=== PATIENT | male | born 1990 | race African-American/Black ===

== ENCOUNTER 2017-03-31 19:02 | Inpatient (IN) | payer OTHER ==
[~2017-03-31] VITALS: Ht 177.8 cm; Wt 89.5 kg
[2017-03-31 20:32] LABS: MEAN CORPUSCULAR HEMOGLOBIN 29.5 pg (27.0-33.0); MEAN CORPUSCULAR HGB CONC 33.2 g/dl (32.0-36.5); MEAN CORPUSCULAR VOLUME 88.9 fl (80.0-96.0); RED CELL DISTRIBUTION WIDTH 12.9 % (11.5-14.5); WHITE BLOOD COUNT 7.2 K/mm3 (4.0-10.0)
[2017-03-31 20:42] LABS: METHADONE URINE NEGATIVE (NEGATIVE)
[2017-03-31 20:53] LABS: ALBUMIN 3.8 GM/DL (3.2-5.2); ALBUMIN/GLOBULIN RATIO 1.12 (1.00-1.93); ALKALINE PHOSPHATASE 72 U/L (45-117); ALT/SGPT 36 U/L (12-78); ANION GAP 8 MEQ/L (8-16); AST/SGOT 17 U/L (15-37); BILIRUBIN,DIRECT < 0.1 MG/DL (0.0-0.2); BILIRUBIN,TOTAL 0.2 MG/DL (0.2-1.0); BLOOD UREA NITROGEN 9 MG/DL (7-18); CALCIUM LEVEL 8.9 MG/DL (8.5-10.1); CARBON DIOXIDE LEVEL 27 MEQ/L (21-32); CHLORIDE LEVEL 106 MEQ/L (98-107); CREATININE FOR GFR 0.93 MG/DL (0.70-1.30); GLOMERULAR FILTRATION RATE > 60.0 (>60); GLUCOSE, FASTING 92 MG/DL (70-105); POTASSIUM SERUM 3.7 MEQ/L (3.5-5.1); SODIUM LEVEL 141 MEQ/L (136-145); TOTAL PROTEIN 7.2 GM/DL (6.4-8.2)
[2017-03-31] MEDS ORDERED: ACETAMINOPHEN TAB 650MG DOSE (2X325MG) PO PRN (21:30)
[2017-03-31] MEDS ORDERED: MOM 30ML SUSPENSION UDC PO PRN (21:30)
[2017-03-31] MEDS ORDERED: MAALOX 30 ML SUSP *UDC PO PRN (21:30)
[2017-03-31 22:46] VITALS: BP 139/85
[2017-04-01] MEDS: traZODone 50 MG TAB PO PRN ×2 (00:29→22:48)
[2017-04-01 06:34] VITALS: BP 114/70
[2017-04-01] MEDS: NICOTINE 14 MG/24 HR TRANSDERMAL TD SCH (09:00)
--- NOTE | 2017-04-01 10:09 | ECGEPIP ---
Stationary ECG Study [facility] - ED Test Date: 2017-03-31 Pat Name: JERRELL CAMACHO Department: Room: [place] [address] Gender: M General Maintenance Mechanic: andre : 1990 Requested By: CONOR LICONA Order Number: [id number] Reading MD: Sultana Oviedo Measurements Intervals [place] Rate: 76 P: 44 CT: 151 QRS: 64 QRSD: 104 T: -26 QT: 348 QTc: 393 Interpretive Statements SINUS RHYTHM ST ELEVATION CONSISTENT WITH INJURY, PERICARDITIS, OR EARLY REPOLARIZATION, CLINICAL CORRELATION NONSPECIFIC ST & T-WAVE ABNORMALITY NO PRIOR FOR COMPARISON Electronically Signed On 04-01-2017 10:09:01 EDT by Sultana Oviedo
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
[2017-04-01 18:00] VITALS: BP 150/82
--- NOTE | 2017-04-01 18:58 | ECGEPIP ---
Stationary ECG Study [facility] Test Date: 2017-04-01 Pat Name: JERRELL CAMACHO Department: Room: [place] [address] Gender: M Drywall Contractor: GABBI : 1990 Requested By: AMEYA OLIVIA Order Number: [id number] Reading MD: Tyler Graham Measurements Intervals [place] Rate: 75 P: 46 WI: 160 QRS: 70 QRSD: 96 T: -26 QT: 341 QTc: 382 Interpretive Statements SINUS RHYTHM ST ELEVATION CONSISTENT WITH INJURY, PERICARDITIS, OR EARLY REPOLARIZATION ST DEVIATION AND MODERATE T-WAVE ABNORMALITY, CONSIDER ISCHEMIA LAST TRACING ON 03/31/2017 AT 20:47:45, NO SIGNIFICANT CHANGES Electronically Signed On 04-01-2017 18:58:51 EDT by Tyler Graham
--- NOTE | 2017-04-01 19:36 | IPNPDOC ---
[facility] Progress Note Progress Note Patient was referred to Attending and resident team because of the abnormal EKG that was suggestive of possible cardiac injury. The EKG interpretation done by the ER suggested this, however, it didn't appear to addressed specifically in the ER. The patient was not c/o chest pain or other symptoms. A repeat EKG showed no changes or progression. The EKG interpretation by Dr. Graham (cardio) was concerned with ischemia and other injurious processes to the heart. Cardiac Marker panel was ordered Q8H hours to rule out any cardiac injury. His first round of enzymes were normal. Item Value Date Time Total Creatine Kinase 229 U/L 04/01/17 1728 Creatine Kinase MB 1.0 NG/ML 04/01/17 1728 Creatine Kinase MB Relative Index 0.43 04/01/17 1728 Troponin I < 0.02 NG/ML 04/01/17 1728 Will continue with two other rounds to complete r/o of any ischemic processes. If they remain normal, then we will refer to the patient to his PCP for outpatient work up. If they become abnormal then medicine will be consulted. His QtC appears to have normalized to 370, which suggests that the use of prozac or other SSRIs would not be contraindicated based on this concern. Vital Signs Vital Signs Date Time Temp Pulse Resp B/P (MAP) Pulse Ox O2 Delivery O2 Flow Rate FiO2 04/01/17 06:34 99.5 81 16 114/70 (85) 03/31/17 22:34 99 Room Air Laboratory Data 24H Labs Laboratory Tests 2 03/31/17 20:10: Anion Gap 8, Glomerular Filtration Rate > 60.0, Calcium Level 8.9, Aspartate Amino Transf (AST/SGOT) 17, Alanine Aminotransferase (ALT/SGPT) 36, Alkaline Phosphatase 72, Total Bilirubin 0.2, Direct Bilirubin < 0.1, Total Creatine Kinase 297, Total Protein 7.2, Albumin 3.8, Albumin/Globulin Ratio 1.12, Thyroid Stimulating Hormone (TSH) 0.705, Salicylates Level < 1.7L, Urine Amphetamines Screen NEGATIVE, Urine Benzodiazepines Screen NEGATIVE, Urine Opiates Screen NEGATIVE, Urine Methadone Screen NEGATIVE, Acetaminophen Level < 2.0L, Urine Barbiturates Screen NEGATIVE, Urine Phencyclidine Screen NEGATIVE, Urine Cocaine Metabolite Screen NEGATIVE, Urine Cannabinoids Screen NEGATIVE, Ethyl Alcohol Level 0.024H 04/01/17 17:28: Total Creatine Kinase 229, Creatine Kinase MB 1.0, Creatine Kinase MB Relative Index 0.43, Troponin I < 0.02 CBC/BMP Laboratory Tests 03/31/17 20:10 Red Blood Count 5.03, Mean Corpuscular Volume 88.9, Mean Corpuscular Hemoglobin 29.5, Mean Corpuscular Hemoglobin Concent 33.2, Red Cell Distribution Width 12.9 Current Medications Current Medications Acetaminophen (Tylenol Tab) 650 mg Q6HP PRN PO HEADACHE or DISCOMFORT; Start at 21:30; Stop 04/30/17 at 21:29 Al Hydrox/Mg Hydrox/Simethicone (Mylanta) 30 ml Q4HP PRN PO HEARTBURN/ INDIGESTION; Start 03/31/17 at 21:30; Stop 04/30/17 at 21:29 Home Med (Med Rec Complete!) ASDIRECTED XX ; Start 03/31/17 at 21:30; Stop at 21:30; Status DC Magnesium Hydroxide (Milk Of Magnesia) 30 ml DAILYPRN PRN PO CONSTIPATION; Start 03/31/17 at 21:30; Stop 04/30/17 at 21:29 Nicotine (Nicoderm Cq 14mg) 1 patch DAILY TD ; Start 04/01/17 at 09:00; Stop 05/01 at 08:59 Trazodone HCl (Desyrel) 50 mg QHSP PRN PO INSOMNIA Last administered on t 00:29; Start 03/31/17 at 21:30; Stop 04/30/17 at 21:29 Allergies Coded Allergies: No Known Allergies (Unverified , 03/31/17) GME ATTESTATION My preceptor for this patient encounter was physically present in the building during the encounter and was fully available. As needed, all aspects of the patient interview, examination, medical decision making process, and medical care plan development were reviewed and approved by the preceptor. Preceptor is aware and concurs with the plan as stated in the body of this note and will attest to such by his/her cosignature. AMEYA OLIVIA DO April 01, 2017 19:36
[2017-04-01] MEDS: LOTRISONE CREAM 15 GM (BETAMETH/CLOTRIMAZOLE) TOP SCH (21:00)
--- NOTE | 2017-04-01 23:40 | HPE ---
DATE OF ADMISSION: 03/31/2017 HISTORY OF THE PRESENT ILLNESS: Please refer to psychiatric history and evaluation for further details on this admission. This examination and history is intended for medical issues which may need treatment, followup, or consult on this 27-year-old male. PRIMARY CARE PROVIDER: [facility]. ALLERGIES: No known allergies. SOCIAL HISTORY: soldier, currently stationed at [employer]. ETOH: Two to three nights a week. Smokes: One-half pack of cigarettes per day. Recreational drug use: None. PAST MEDICAL HISTORY: Depression. PAST SURGICAL HISTORY: None. HOME MEDICATIONS: None. FAMILY HISTORY: Noncontributory. LABORATORY STUDIES: CBC normal. CMP normal. Ethyl alcohol (ETOH) 0.024. REVIEW OF SYSTEMS: Ten-system review was done. He states for greater than a year he gets anal pain when urinating. He has had testing done and is following at [facility]. He also states he has bilateral athlete's foot. Other than that, review of systems unremarkable. OBJECTIVE: A 27-year-old cooperative male in no acute distress. Height 70 inches, weight 81.6 kg, body mass index (BMI) 25.8. Blood pressure 136/75, pulse 89, respirations 18, temperature 98.4. The patient is alert and oriented times three. Pupils are equal and reactive to light. Extraocular movements intact. Cornea and sclerae clear. Conjunctivae is normal. No facial asymmetry. Pharynx: Tongue and gums pink and moist. Tongue is midline. Neck is supple without lymphadenopathy. No thyromegaly. No goiter. Carotids 2+ without bruits. Chest is clear to auscultation without wheeze or retractions. Heart is regular. Abdomen benign. Bowel sounds are positive. Genitalia/Rectal: Not done. Extremities show equal strength, full range of motion. No cyanosis, clubbing or edema. Peripheral pulses equal and palpable bilaterally. Bilateral rash between toes both feet. No redness or swelling. Skin is warm and dry. . IMPRESSION AND PLAN: Psychiatric plan per psychiatry. Lotrisone Cream to rash on feet twice a day for 7 days. Anal pain with urination times 1 year. Continued followup with [facility] as an outpatient. No acute medical issues.
[2017-04-02 06:41] VITALS: BP 155/69
[2017-04-02] MEDS: NICOTINE 14 MG/24 HR TRANSDERMAL TD SCH (08:33)
[2017-04-02] MEDS: LOTRISONE CREAM 15 GM (BETAMETH/CLOTRIMAZOLE) TOP SCH ×2 (08:33→21:00)
--- NOTE | 2017-04-02 17:14 | MHIPNPDOC ---
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 Per ER report, patient indicated he " would rather than continue to go to work." Patient appears irritable this morning, is demanding to be discharged noting, " I came in for meds and just to talk to someone I don't need to be in the hospital." Patient states he is experiencing mild depression noting "I'm a worrier," and appears anxious, denies suicidal and homicidal ideation, denies auditory and visual hallucinations, denies urge to engage in self-injurious behavior. Patient has been visible, attending groups, cooperative with staff. Patient indicates he is now "not sure" if he wants to begin medication, is aware recent EKG results are being evaluated by Rhiannon. Patient indicates he's been sleeping well and denies nightmares, reports appetite and energy levels are stable, denies challenges with concentration and focus. Patient denies physical pain. Addendum: Patient called [facility] and informed newswriter that he was told he could return to [facility] today for outpatient behavioral health treatment. Osteopathy Doctor consulted with fitness and wellness coordinator who indicated she had spoken with [facility] who said that there are concerns regarding patient's current status which pertained to: Patient dropped out of behavioral health treatment last August, patient failed to follow through on [facility] referral, possible implication that patient may be in hospital in response to disciplinary issue, command not having been informed by patient of his whereabouts. Osteopathy Doctor followed up with patient to provide him with update and to let him know the command meeting has been scheduled for Wednesday at 09:00 to discuss discharge planning which is likely to occur early next week. Osteopathy Doctor inquired again with patient as to his interest in restarting Prozac and patient indicated, "I've been doing really well here going to groups and talking to people, I don't think I need the medication." Osteopathy Doctor encouraged patient to consider antidepressant restart. VITAL SIGNS: See below. Blood pressure elevated; patient is asymptomatic, denies symptoms of chest pain, shortness of breath, dizziness, headache, palpitations. Nursing has been made aware and asked to monitor and to request PA /Daron.DPaula evaluation if continues to elevate NEW TEST RESULTS: Refer to 04/02/17 M.D. entry pertaining to lab results and ongoing cardiac monitoring PAST MEDICAL/SURGICAL HISTORY: Patient denies history of chronic medical conditions, denies history of seizure or head injury 03/31/[address] elevation consistent with injury, pericarditis, or early repolarization, clinical correlation nonspecific ST and T-wave abnormality , no prior for comparison EtOH on admission 0.024 04/01/[address] ELEVATION CONSISTENT WITH INJURY, PERICARDITIS, OR EARLY REPOLARIZATION ST DEVIATION AND MODERATE T-WAVE ABNORMALITY, CONSIDER ISCHEMIA LAST TRACING ON 03/31/2017 AT 20:47:45, NO SIGNIFICANT CHANGES. Patient is asymptomatic and M.Doug has ordered additional lab testing and is monitoring. CURRENT MEDICATIONS: See below. MENTAL STATUS EXAMINATION: General appearance: Patient is a 27-year old male, who is irritable, argumentative at times, evasive, makes poor eye contact, exhibits adequate personal hygiene, dressed in hospital clothing, ambulates with steady gait, appears stated age Speech: Of normal rate, rhythm, volume, spontaneous, coherent Thought processes: Logical, goal-directed Thought content: Rational, logical, no tangentiality noted, no paranoia. Abstract reasoning and computation: Requires further evaluation. Description of associations: Intact. Description of abnormal or psychotic thoughts: Denies suicidal or homicidal ideation, denies auditory or visual hallucinations, does not appear to be responding to internal stimuli, does not endorse Eva paranoid ideation, denies any preoccupation with violence and/or obsessions. Judgment: Poor. Insight: Poor. Orientation: A and O 3. Recent and remote memory: Appear intact. Attention span and concentration: Adequate. Fund of knowledge: Adequate. Mood: "I'm fine, I just want to be discharged." Patient appears depressed, anxious, no mood lability noted Affect: Blunted DIAGNOSES: Adjustment disorder with mixed anxiety and depressed mood, MDD, recurrent, moderate, alcohol use disorder, rule out PTSD ASSESSMENT: Patient appears to be adjusting to unit, has been visible and engaging selectively, is attending groups. Patient is wanting to discharge today , is marginally receptive to being told by newswriter that communication with [facility] does not support his discharge at this time. Osteopathy Doctor informs patient that new EKG results have been evaluated and patient has been cleared to restart Prozac, or other antidepressant, which patient has indicated was his primary reason for coming into the ER. Patient states he does not feel he needs to take antidepressant at this time, agrees to consider and alert weekend provider if he would like to restart medication. Patient has been utilizing trazodone for sleep with good effect and denies medication side effects. Patient denies suicidal and homicidal ideation and verbalizes awareness of how to access supportive services on the unit if needed. Will monitor patient's response to medication and inpatient environment, medication side effects, and will evaluate patient safety, resolution of suicidal ideation, and discharge readiness. When ready for discharge, patient indicates he wants to return home to his apartment, completes his contract and ETS out of the [employer] after which she plans to return to [place] to live with and children and attend college. Patient is agreeable to returning to [facility] and participating in outpatient behavioral health services for psychotherapy and medication management services, is aware IOP and [facility] recommendations will be made. MANAGEMENT PLAN: Continue Trazodone 5o mg po hs PRN insomnia. Encourage patient to consider taking psychotropic medication to address symptoms of anxiety and depression Vitals ordered QID Maintain safety precautions Patient to attend groups and participate in unit programming to develop coping strategies Engage patient in discharge planning process and arrange meeting with command to ensure safe discharge planning when appropriate Patient to follow up with [facility] upon discharge TIME SPENT: 35 minutes. Vital Signs Vital Signs Date Time Temp Pulse Resp B/P (MAP) Pulse Ox O2 Delivery O2 Flow Rate FiO2 04/02/17 06:41 98.2 75 16 155/69 (97) 03/31/17 22:34 99 Room Air Laboratory Data 24H Labs Laboratory Tests 2 04/01/17 17:28: Total Creatine Kinase 229, Creatine Kinase MB 1.0, Creatine Kinase MB Relative Index 0.43, Troponin I < 0.02 04/02/17 01:41: Total Creatine Kinase 228, Creatine Kinase MB 1.0, Creatine Kinase MB Relative Index 0.43, Troponin I < 0.02 04/02/17 09:34: Total Creatine Kinase 228, Creatine Kinase MB 1.0, Creatine Kinase MB Relative Index 0.43, Troponin I < 0.02 Current Medications Current Medications Acetaminophen (Tylenol Tab) 650 mg Q6HP PRN PO HEADACHE or DISCOMFORT; Start at 21:30; Stop 04/30/17 at 21:29 Al Hydrox/Mg Hydrox/Simethicone (Mylanta) 30 ml Q4HP PRN PO HEARTBURN/ INDIGESTION; Start 03/31/17 at 21:30; Stop 04/30/17 at 21:29 Betamethasone/ Clotrimazole (Lotrisone Cream) bilateral feet for 7 days BID TOP Last administered on 04/02/17 08:33; Start 04/01/17 at 21:00; Stop 05/01/17 at 20:59 Home Med (Med Rec Complete!) ASDIRECTED XX ; Start 03/31/17 at 21:30; Stop at 21:30; Status DC Magnesium Hydroxide (Milk Of Magnesia) 30 ml DAILYPRN PRN PO CONSTIPATION; Start 03/31/17 at 21:30; Stop 04/30/17 at 21:29 Nicotine (Nicoderm Cq 14mg) 1 patch DAILY TD ; Start 04/01/17 at 09:00; Stop 05/01 at 08:59 Trazodone HCl (Desyrel) 50 mg QHSP PRN PO INSOMNIA Last administered on 22:48; Start 03/31/17 at 21:30; Stop 04/30/17 at 21:29 Allergies Coded Allergies: No Known Allergies (Unverified , 03/31/17) Leti Emerson April 02, 2017 17:14
[2017-04-02 17:32] VITALS: BP 150/94
[2017-04-02 18:00] VITALS: BP 138/70
[2017-04-02 22:00] VITALS: BP 140/92
[2017-04-02] MEDS: traZODone 50 MG TAB PO PRN (23:55)
[2017-04-03] VITALS (9 sets, daily range): BP systolic 134–164; BP diastolic 63–87
[2017-04-03] MEDS: NICOTINE 14 MG/24 HR TRANSDERMAL TD SCH (08:55)
[2017-04-03] MEDS: LOTRISONE CREAM 15 GM (BETAMETH/CLOTRIMAZOLE) TOP SCH ×2 (08:57→21:00)
--- NOTE | 2017-04-03 21:20 | IPN ---
DATE: 04/03/2017 CHIEF COMPLAINT: Says feels okay. SUBJECTIVE: He is seen for followup. He is seen in the presence of staff. He says that he has been doing okay, and has been sleeping better. He says that he has realized that talking about things has helped him and that things are not as bad as he thought they were, and suggests that he is aware others have similar difficulties as well, including other soldiers. Say has always wanted to maintain or achieve (cut off) and has tended to be upset when is unable to do that. Denies any compulsive habits as such. MENTAL STATUS EXAMINATION: Neat, cooperative. No agitation. Coherent. Affect is reactive, fairly broad. Denies any thoughts of harming himself or anyone else. Currently, no evidence of any psychosis. Cognition is grossly intact. Judgment is good. Insight is fair to good, possibly improved. ASSESSMENT: Adjustment disorder with mixed anxiety and depressed mood. PLAN: Continue current care and observations. Consider using a scheduled psychotropic if there is further evidence of mood difficulties. Blood pressure is better today. They were running in the 150 range yesterday systolic, the 90s diastolic. Today, they range from 134/63 to 136/84. We will continue with these observations, and we will encourage the patient to participate in activities in the unit.
[2017-04-04 06:33] VITALS: BP 128/64
[2017-04-04] MEDS: LOTRISONE CREAM 15 GM (BETAMETH/CLOTRIMAZOLE) TOP SCH ×2 (08:59→20:52)
[2017-04-04] MEDS: NICOTINE 14 MG/24 HR TRANSDERMAL TD SCH (08:59)
[2017-04-04 12:00] VITALS: BP 144/85
[2017-04-04 18:00] VITALS: BP 125/65
[2017-04-04 21:00] VITALS: BP 132/70
--- NOTE | 2017-04-05 00:39 | IPN ---
DATE OF SERVICE: 04/04/2017 CHIEF COMPLAINT: Feels better. SUBJECTIVE: Says feels better, moods are good, improved, says was visited by his , that went well. MENTAL STATUS EXAMINATION: He is neat. He is cooperative. No agitation. Coherent. Affect reactive, appears relatively relaxed. No evidence of any thoughts of harming himself or anyone else. Does not appear to be internally preoccupied. Cognition is grossly intact. Insight improved. ASSESSMENT: Adjustment disorder with mixed anxiety and depressed mood. PLAN: Continue current observations and encourage participation in activities in the unit. He is due to have a chain of command meeting tomorrow morning, and further recommendations will be made by the treatment team after that.
[2017-04-05 07:00] VITALS: BP 156/74
[2017-04-05] MEDS: NICOTINE 14 MG/24 HR TRANSDERMAL TD SCH (09:00)
[2017-04-05] MEDS: LOTRISONE CREAM 15 GM (BETAMETH/CLOTRIMAZOLE) TOP SCH (10:30)
[2017-04-05] MEDS ORDERED: TRAZO50TA PO (11:50)
--- NOTE | 2017-04-05 17:27 | MHDSPDOC ---
[facility] Discharge Summary Discharge Summary DATE OF ADMISSION: March 31, 2017 at 21:23 DATE OF DISCHARGE: April 05, 2017 at 13:35 DISCHARGE DIAGNOSES: 1. Adjustment disorder with disruption of mood and conduct. REASON FOR ADMISSION: Patient was admitted due to suicidal ideation in the context of social stressors CONSULTANTS INVOLVED: None TREATMENT AND PROGRESS ON THE UNIT : Legal status on admission: 9.39 Medication Management: The patient was started on when necessary trazodone for sleep which had been a dental fight as an early issue when he was evaluated upon admission. There was discussion about starting Prozac with the patient however his initial QTC. He was close to 400 and the provider was not comfortable providing Prozac and trazodone at the same time. Additionally there appeared to be some abnormalities on his EKG that after full workup appeared to just be a little abnormalities unspecified significance but were not determined to be emergent are due to ischemia. The patient however had stabilized well enough with the trazodone that Prozac did not need to be started by the time of his discharge. 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 MENTAL STATUS EXAMINATION ON DISCHARGE: General: Well dressed with good hygiene Speech: Spontaneous and fluid Thought processes: Linear and logical Thought content: Future orientated Abstract reasoning, and computation: Intact Description of associations: Intact Description of abnormal or psychotic thoughts:Denies any suicidal or homicidal ideation. Denies any auditory or visual hallucinations. Does not appear to be responding to internal stimuli. Does not appear to be endorsing any bizarre or paranoid ideation. Judgment: Fair Insight: Fair Orientation: Alert and orientated 3 Recent and remote memory: Intact Attention span and concentration: Intact Fund of knowledge: Adequate Mood: "Great" Affect: Euthymic with a full range PLAN/FOLLOWUP ARRANGEMENTS: Patient to follow-up with [facility]. The social work team worked during the predischarge meeting in order to evaluate for further issues of lethality address them fully before discharge. They worked on safety planning with the patient's family members in order to ensure that the patient will have a safe and effective discharge. The amount of time spent in the coordination of care for this patient was approximately 40 minutes. Vital Signs/I&Os Vital Signs Date Time Temp Pulse Resp B/P (MAP) Pulse Ox O2 Delivery O2 Flow Rate FiO2 04/05/17 07:00 98.4 76 16 156/74 (101) 04/03/17 20:38 99 Room Air Medications Scheduled PRN Trazodone HCl (Trazodone HCl) 50 Mg Tab, 50 MG PO QHSP PRN for INSOMNIA for 10 Days, #10 Allergies Coded Allergies: No Known Allergies (Unverified , 03/31/17) GME ATTESTATION My preceptor for this patient encounter was physically present in the building during the encounter and was fully available. As needed, all aspects of the patient interview, examination, medical decision making process, and medical care plan development were reviewed and approved by the preceptor. Preceptor is aware and concurs with the plan as stated in the body of this note and will attest to such by his/her cosignature. AMEYA OLIVIA DO April 05, 2017 17:27
== END 2017-04-05 13:35 | disposition home or self-care (01) | DRG 882 ==
LOC: M ED 20:49 → M ED INP 21:23 → M PSY 22:45
PROVIDERS: ADMIT Psychiatry & Neurology Child & Adolescent Psychiatry; ATTEND Psychiatry & Neurology Psychiatry
DX: F43.25 Adjustment disorder with mixed disturbance of emotions and conduct (principal); F17.210 Nicotine dependence, cigarettes, uncomplicated; R21 Rash and other nonspecific skin eruption

== ENCOUNTER 2017-04-29 09:26 | Emergency (ER) | payer OTHER ==
[~2017-04-29] VITALS: Ht 177.8 cm; Wt 86.2 kg
[~2017-04-29 09:26] MED LIST: TRAZO50TA PO
[2017-04-29] MEDS ORDERED: NS 1,000 ML IV ONE (10:15)
[2017-04-29] MEDS ORDERED: ONDANSETRON 4MG/2ML VIAL (J2405) IV ONE (10:15)
[2017-04-29] MEDS ORDERED: MORPHINE 2 MG/ML 1ML SYRINGE IV ONE (10:15)
[2017-04-29 10:41] LABS: BASO % 0.4 % (0.0-1.0); EOS # 0.2 K/mm3 (0.0-0.50); EOS % 2.7 % (0.0-3.0); LARGE UNSTAINED CELL # 0.1 K/mm3 (0.0-0.4); LARGE UNSTAINED CELL % 1.5 % (0.0-4.0); LYMPH # 2.3 K/mm3 (1.5-6.5); LYMPH % 36.9 % (24.0-44.0); MEAN CORPUSCULAR HEMOGLOBIN 29.3 pg (27.0-33.0); MEAN CORPUSCULAR VOLUME 86.2 fl (80.0-96.0); MONO # 0.4 K/mm3 (0.0-0.8); MONO % 7.2 % (0.0-5.0); NEUTROPHILS # 3.1 K/mm3 (1.8-7.7); NEUTROPHILS % 51.3 % (36.0-66.0); PLATELET COUNT, AUTOMATED 275 k/mm3 (150-450); RED CELL DISTRIBUTION WIDTH 13.1 % (11.5-14.5); WHITE BLOOD COUNT 6.1 K/mm3 (4.0-10.0)
[2017-04-29 11:48] LABS: ALBUMIN 3.6 GM/DL (3.2-5.2); ALKALINE PHOSPHATASE 69 U/L (45-117); ALT/SGPT 38 U/L (12-78); AMYLASE 55 U/L (25-115); ANION GAP 4 MEQ/L (8-16); AST/SGOT 21 U/L (15-37); BILIRUBIN,DIRECT < 0.1 MG/DL (0.0-0.2); BILIRUBIN,TOTAL 0.4 MG/DL (0.2-1.0); BLOOD UREA NITROGEN 8 MG/DL (7-18); CALCIUM LEVEL 9.1 MG/DL (8.5-10.1); CARBON DIOXIDE LEVEL 31 MEQ/L (21-32); CHLORIDE LEVEL 106 MEQ/L (98-107); CREATININE FOR GFR 0.91 MG/DL (0.70-1.30); GLOMERULAR FILTRATION RATE > 60.0 (>60); GLUCOSE, FASTING 89 MG/DL (70-105); POTASSIUM SERUM 3.7 MEQ/L (3.5-5.1); SODIUM LEVEL 141 MEQ/L (136-145); TOTAL PROTEIN 7.2 GM/DL (6.4-8.2)
[2017-04-29] MEDS ORDERED: ZOFR4TAB3 PO (12:04)
[2017-04-29 12:11] VITALS: BP 139/72
== END 2017-04-29 12:14 | disposition home or self-care (01) ==
LOC: M ED 10:15
DX: K52.9 Noninfective gastroenteritis and colitis, unspecified (principal); F17.200 Nicotine dependence, unspecified, uncomplicated; F41.9 Anxiety disorder, unspecified; F32.9 Major depressive disorder, single episode, unspecified
CPT/HCPCS: 36415; 80048; 80076; 81001; 82150; 83690; 85025; 96374; 96375; 99283; J2405